=== PATIENT | female | born 1995 | race Caucasian/White ===

== ENCOUNTER 2018-03-09 10:59 | Day surgery (SDC) | payer OTHER ==
[2018-03-09] MEDS ORDERED: LR 1,000 ML IV ONE (11:19)
--- NOTE | 2018-03-09 12:10 | PDANEPAE ---
ANE Past Medical History - Cardiovascular History Hx Hypertension: No Hx Arrhythmias: No Hx Chest Pain: No Hx Coronary Artery / Peripheral Vascular Disease: No Hx CHF / Valvular Disease: No Hx Palpitations: No - Pulmonary History Hx COPD: No Hx Asthma/Reactive Airway Disease: Yes Hx Recent Upper Respiratory Infection: No Hx Oxygen in Use at Home: No Hx Sleep Apnea: No Sleep Apnea Screening Result - Last Documented: Negative Pulmonary History Comment: mild asthma - Neurologic History Hx Cerebrovascular Accident: No Hx Seizures: Yes Hx Dementia: No Neurologic History Comment: seizure noted after ingesting Prolpulsid-age 7 - Endocrine History Hx Diabetes: No Hypothyroid: Yes Hyperthyroid: No Obesity: no Endocrine History Comment: hypothyroid - Renal History Hx Renal Disorders: No - Liver History Hx Hepatic Disorders: No - Neurological & Psychiatric Hx Hx Neurological and Psychiatric Disorders: No - Cancer History Hx Cancer: No - Congenital Disorder History Hx Congenital Disorders: No - GI History GERD: mild Hx Gastrointestinal Disorders: Yes Gastrointestinal History Comment: seldom reflux, family hx polyps. gluten intolerance - Other Health History Other Health History: n/a - Chronic Pain History Chronic Pain: No - Surgical History Prior Surgeries: Oscar fundoplication. bunion- bilat feet ANE Review of Systems Review of Systems: - Exercise capacity METS (RN): 5 METS ANE Patient History - Allergies Allergies/Adverse Reactions: cisapride [From Propulsid] Allergy (Verified 02/24/18 15:57) Other-Enter Comments gluten Allergy (Verified 02/24/18 16:15) Other-Enter Comments - Home Medications Home Medications: Synthroid 02/24/18 [Last Taken 03/08/18] Lansoprazole [Prevacid] PRN 03/09/18 [Last Taken 03/08/18] - NPO status NPO Since - Liquids (Date): 03/08/18 NPO Since - Liquids (Time): 20:00 NPO Since - Solids (Date): 03/07/18 NPO Since - Solids (Time): 12:00 - Anes Hx Anes Hx: no prior problems - Smoking Hx Smoking Status: Never smoked Marijuana use: No - Alcohol Use Alcohol Use: Occasionally - Family Anes Hx Family Anes Hx: neg - N/A ANE Labs/Vital Signs - Vital Signs Blood Pressure: 139/84 Heart Rate: 82 Respiratory Rate: 16 O2 Sat (%): 97 Height: 160.02 cm Weight: 68.039 kg ANE Physical Exam - Airway Neck exam: FROM Mallampati Score: Class 2 Mouth exam: normal dental/mouth exam - Pulmonary Pulmonary: no respiratory distress, no rales or rhonchi, clear to auscultation - Cardiovascular Cardiovascular: regular rate and rhythym, no murmur, rub, or gallop - ASA Status ASA Status: II ANE Anesthesia Plan Anesthesia Plan: MAC Total IV Anesthesia: Yes
[2018-03-09] MEDS ORDERED: ONDANSETRON 4 MG/2 ML VIAL IVP PRN (12:23)
[2018-03-09] MEDS ORDERED: LR 500 ML IV PRN (12:23)
[2018-03-09] MEDS ORDERED: NALOXONE HCL 0.4 MG/ML INJ IVP PRN (12:23)
[2018-03-09] MEDS ORDERED: PHENYLEPHRINE HCL 100 MCG/ML SYR IVP PRN (12:23)
[2018-03-09] MEDS ORDERED: PROMETHAZINE HCL 25 MG/ML INJ IVP PRN (12:23)
[2018-03-09] MEDS ORDERED: ACETAMINOPHEN 500 MG TAB PO PRN (12:23)
[2018-03-09] MEDS ORDERED: epHEDrine SULFATE 10 MG/ML SYR IVP PRN (12:23)
[2018-03-09] MEDS ORDERED: PROPOFOL 200 MG/20 ML VIAL ONE ×2 (12:32→13:13)
[2018-03-09] MEDS ORDERED: fentaNYL 100 MCG/2 ML INJ ONE (12:32)
--- NOTE | 2018-03-09 12:47 | PDGENHP ---
History & Physical Chief Complaint: FAP History of Present Illness: 22 year old female with FAP presents for surveillanceE/C. Pertinent Past, Social, Family History: PMHx: asthma. SurHx: none. FaMhx; FAP Relevant Physical Exam: HEENT: anicteric. CV: RRR +s1s2. Lungs: CTAB. Abd: soft, nt, + bs Cardiorespiratory Assessment: ASA 2
[2018-03-09] MEDS ORDERED: NS 500 ML IV SCH (13:30)
[2018-03-09] MEDS ORDERED: INDOMETHACIN 50 MG SUPP PR PRN (13:30)
--- NOTE | 2018-03-09 13:59 | POSTANESTH ---
Post Anesthetic Evaluation Cardiovascular Status: Normal, Stable Respiratory Status: Normal, Stable Level of Consciousness/Mental Status: Can Participate in Eval Pain Control: Adequate, Prn Tx Ordered Nausea/Vomiting Control: Adequate, Prn Tx Ordered Complications Possibly Related to Anesthesia: None Noted
[2018-03-09 14:03] VITALS: BP 109/71
--- NOTE | 2018-03-09 14:09 | GIREPORT ---
[facility] Surgical Services - Endoscopy Department Patient Name: Fatou Langston Procedure Date: 03/09/2018 12:28 PM Patient Type: Outpatient Attending MD/ ER Physician: Daniel Lagunas MD Procedure: Upper GI endoscopy Indications: Surveillance for malignancy due to personal history of Familial Adenoma tous Polyposis, Dyspepsia Patient Profile: 22 year old with FAP presents for surveillance EGD. She also has minima l complaints of dyspepsia. Providers: Daniel Lagunas MD Medicines: Monitored Anesthesia Care Complications: No immediate complications. Estimated blood loss: Minimal. Description of Procedure: After obtaining informed consent, the endoscope was passed under direct vision. Throughout the procedure, the patient's blood pressure, pulse, and oxygen saturations were monitored continuously. The Endoscope was intro duced through the mouth, and advanced to the second part of duodenum. The Duodenalscope was introduced through the mouth, and advanced to the sec ond part of duodenum. The upper GI endoscopy was accomplished without difficulty. The patient tolerated the procedure well. Findings: The examined esophagus was normal. Patchy mildly erythematous mucosa was found in the gastric body and in the gastric antrum. Biopsies were taken with a cold forceps for histology. The examined duodenum was normal. Biopsies for histology were taken wit h a cold forceps for evaluation of celiac disease. Estimated Blood Loss: Estimated blood loss was minimal. Post Op Diagnosis: - Normal esophagus. - Erythematous mucosa in the gastric body and antrum. Biopsied. - Normal examined duodenum. Biopsied. - Normal ampulla. (viewed with side viewer) Recommendation: - Perform a colonoscopy today. - Await pathology results. - Repeat upper endoscopy in 1 year for surveillance. - Thank you for allowing me to participate in the care of your patient. Attending Participation: I personally performed the entire procedure. Daniel Lagunas MD Daniel Lagunas MD 03/09/2018 2:09:18 PM This report has been signed electronicallyDaniel Lagunas MD Number of Addenda: 0 Note Initiated On: 03/09/2018 12:28 PM [email or web address]
--- NOTE | 2018-03-09 15:18 | GIREPORT ---
[facility] Surgical Services - Endoscopy Department Patient Name: Fatou Langston Procedure Date: 03/09/2018 12:29 PM Patient Type: Outpatient Attending MD/ ER Physician: Daniel Lagunas MD Procedure: Colonoscopy Indications: Personal history of familial adenomatous polyposis Patient Profile: 22 [place] old female with a history of FAP presents for surveillance colonoscopy. Providers: Daniel Lagunas MD Medicines: Monitored Anesthesia Care Complications: No immediate complications. Estimated blood loss: Minimal. Description of Procedure: After obtaining informed consent, the scope was passed under direct vis ion. Throughout the procedure, the patient's blood pressure, pulse, and oxyg en saturations were monitored continuously. The Colonoscope with irrigatio n channel was introduced through the anus and advanced to the terminal il eum. The colonoscopy was performed without difficulty. The patient tolerated the procedure well. The quality of the bowel preparation was good. The term inal ileum, ileocecal valve, appendiceal orifice, and rectum were photograph ed. Findings: The perianal and digital rectal examinations were normal. Pertinent negatives include no palpable rectal lesions. Two sessile polyps were found in the sigmoid colon and hepatic flexure. The polyps were 2 to 3 mm in size. These polyps were removed with a cold bi opsy forceps. Resection and retrieval were complete. Estimated Blood Loss: Estimated blood loss was minimal. Post Op Diagnosis: - Two 2 to 3 mm polyps in the sigmoid colon and at the hepatic flexure, removed with a cold biopsy forceps. Resected and retrieved. Recommendation: - Discharge patient to home (with escort). - Resume previous diet. - Continue present medications. - Repeat colonoscopy in 1 year for surveillance, will await pathology b efore making final decision. - Await pathology results. - Thank you for allowing me to participate in the care of your patient. Attending Participation: I personally performed the entire procedure. Daniel Lagunas MD Daniel Lagunas MD 03/09/2018 3:17:48 PM This report has been signed electronicallyDaniel Lagunas MD Number of Addenda: 0 Note Initiated On: 03/09/2018 12:29 PM Total Procedure Duration Time 0 hours 17 minutes 40 seconds [id number]
== END 2018-03-09 15:15 | disposition home or self-care (01) ==
LOC: FSGY 10:59
PROVIDERS: ATTEND Internal Medicine Gastroenterology
DX: Z12.11 Encounter for screening for malignant neoplasm of colon (principal); D12.5 Benign neoplasm of sigmoid colon; K21.9 Gastro-esophageal reflux disease without esophagitis; R11.10 Vomiting, unspecified; Z86.010 Personal history of colon polyps
CPT/HCPCS: J2704; J3010